=== PATIENT | male | born 1955 | race Caucasian/White ===

== ENCOUNTER 2018-04-20 07:56 | Day surgery (SDC) | payer OTHER ==
[2018-04-20] MEDS ORDERED: PROPOFOL 40 ML (09:36)
== END 2018-04-20 11:11 | disposition home or self-care (01) ==
LOC: GIL 07:56
DX: Z12.11 Encounter for screening for malignant neoplasm of colon (principal); D12.3 Benign neoplasm of transverse colon; K64.8 Other hemorrhoids; I10 Essential (primary) hypertension
CPT/HCPCS: 45380; 88305